=== PATIENT | female | born 1985 | race Caucasian/White ===

== ENCOUNTER 2022-11-12 14:28 | Emergency (ER) | payer OTHER, SELFPAY ==
[2022-11-12 14:38] VITALS: BP 141/80; PULSE 94; RESP 18; TEMP 36.8; O2SAT 100
--- NOTE | 2022-11-12 15:26 | ED.URI ---
HPI - URI/Sore Throat General Chief Complaint: Upper Respiratory Infection Stated Complaint: Sore throat Time Seen by Provider: 11/12/22 15:18 Source: patient Mode of arrival: ambulatory Limitations: no limitations History of Present Illness HPI Narrative: Patient presents today complaining 3 day history of sore throat, postnasal drip, and fatigue. Denies congestion or rhinorrhea. Denies fever. Patient believes her symptoms are due to seasonal allergies, but she did have a recent strep exposure and wanted to come in to be tested. She has been taking Xyzal and using Flonase with some relief and currently rates her pain 07/13. Related Data Home Medications Medication Instructions Recorded Confirmed etonogestrel 0.12 mg-ethinyl 1 vag ring vaginal ONCE 11/21/19 11/12/22 estradiol 0.015 mg/24 hr vaginal ring (NuvaRing) Allergies Allergy/AdvReac Type Severity Reaction Status Date / Time No Known Allergies Allergy Mild Verified 12/24/19 08:31 Review of Systems Review of Systems: CONSTITUTIONAL: Denies body aches, fever, chills, or sweats.+ fatigue EYES: Denies visual changes, redness, or discharge. ENT: Denies rhinorrhea, congestion, or otalgia.+ sore throat, postnasal drip CARDIOVASCULAR: Denies chest pain, palpitations, or edema. RESPIRATORY: Denies cough or dyspnea. GASTROINTESTINAL: Denies abdominal pain, nausea, vomiting, or diarrhea. GENITOURINARY: Denies dysuria or hematuria. SKIN: Denies rash, itching, or wounds. MUSCULOSKELETAL: Denies back pain, joint pain, or myalgia. NEUROLOGIC: Denies headache, numbness, tingling, or weakness. PSYCH: Denies depression or anxiety. [facility] Past Medical History Medical History Backache without radiation Dyslipidemia Environmental allergies History of depression Migraine Surgical History Surgical History No pertinent past surgical history Family History Family History Other Carcinoma of colon Colon cancer Family history of Alzheimer's disease Family history of coronary artery disease Social History Social History Smoking status: Former smoker Second hand tobacco smoke exposure: No Smoking end date: 07/04/16 Alcohol intake: current Alcohol use details: consumes 1 whiskey drink weekly Substance use: never Substance use type: does not use Gender identity (if verbalized by the patient): Female Comments At time of signature, I have reviewed and agree with nursing past medical, surgical, social and family history unless otherwise noted. Please see nursing chart for further information. There is no relevant family history pertinent to the presenting complaint Exam Narrative: GENERAL: Well-appearing, well-nourished, and in no acute distress. HEAD: Normocephalic, atraumatic. EYES: EOMI. No redness or drainage. Conjunctivae normal. ENT: Mucous membranes pink and moist. Nares clear. No rhinorrhea. TMs normal bilaterally. Throat normal with white postnasal drainage. Uvula midline. NECK: Normal AROM. Supple. No lymphadenopathy. CHEST: No respiratory distress. Clear to auscultation. HEART: Regular rate and rhythm. No murmur appreciated. Normal peripheral pulses. EXTREMITIES: Normal range of motion. No edema. SKIN: Warm, dry, no rash. Capillary refill normal. Normal skin turgor. NEURO: No focal deficits. Alert and oriented x3. Gait steady. PSYCH: Normal affect. No signs of depression or anxiety. Course Course Level of Care: Express Care Visit Vital Signs Vital signs: Vital Signs Temperature 98.2 F 11/12/22 14:38 Pulse Rate 94 11/12/22 14:38 Respiratory Rate 18 11/12/22 14:38 Blood Pressure 141/80 H 11/12/22 14:38 Pulse Oximetry 100 11/12/22 14:38 Oxygen Delivery
== END 2022-11-12 15:32 | disposition home or self-care (01) ==
PROVIDERS: Emergency Provider Nurse Practitioner
DX: J30.2 Other seasonal allergic rhinitis (principal); Z87.891 Personal history of nicotine dependence; E78.5 Hyperlipidemia, unspecified
CPT/HCPCS: 87081; 87880; 99213; G0463

== ENCOUNTER 2023-09-06 08:14 | Outpatient (CLI) | payer BC, SELFPAY ==
--- NOTE | ~2023-09-06 | MMUS_ITS ---
EXAMINATION: MM diagnostic chio BI w hi, US breast BI limited HISTORY: Right breast burning sensation approximately 4-6 months ago, feeling of odd sensation in rig ht breast, right breast pain today. TECHNIQUE: Full field and spot 3-D tomosynthesis images of both breasts were performed and synthetic 2-D images were generated. CAD analysis was submitted and interpreted. High resolution upper outer an d lower-outer quadrant bilateral breast ultrasound examination was performed. COMPARISON: None BREAST PARENCHYMAL COMPOSITION: There are scattered areas of fibroglandular density. FINDINGS: MAMMOGRAPHIC FINDINGS: There is mild fibroglandular asymmetry. No definite mass or architectural distortion, malignant calci fication, skin thickening or retraction of either breast is detected.. ULTRASOUND: No suspicious mass or shadowing, cyst or other significant sonographic abnormalities detected in the outer half of either breast. IMPRESSION: 1. No evidence of malignancy 2. Routine annual mammographic screening is recommended. BI-RADS Category 1: Negative Reviewed, dictated and finalized at location A. TH AND PHYSICAL EDUCATION TEACHER IMPRESSION: 1. No evidence of malignancy 2. Routine annual mammographic screening is recommended. BI-RADS Category 1: Negative
== END 2023-09-06 08:15 ==
LOC: MICIMG 08:16
PROVIDERS: PCP Obstetrics & Gynecology; Visit Provider Obstetrics & Gynecology
DX: N63.10 Unspecified lump in the right breast, unspecified quadrant (principal); N64.4 Mastodynia
CPT/HCPCS: 76642; 77062; 77066; G0279

== ENCOUNTER 2025-01-09 15:13 | Outpatient (CLI) | payer BC, SELFPAY ==
[2025-01-09] VITALS (7 sets, daily range): BP systolic 139–158; BP diastolic 73–85; PULSE 73–83; BMI 42.0
--- OUTSIDE RECORDS SUMMARY | 2025-01-09 15:22 | XMS_ITS | Continuity of Care Document ---
Author Organization [facility] Address [address] [facility] [place] [address] Phone Care Team Providers Care Client Service And Consulting Manager Name Role Phone Adilson Marrufo MD Unavailable Unavailable Allergies, Adverse Reactions, Alerts Substance Reaction Status Criticality poison cassandra extract Hives / Skin Rash(severe) Active No Information Procedures Procedure Date PREV VISIT, NEW, AGE 40-64 Advance Directives Directive Yes / No Effective Date File Name No Information Encounters Encounter Description Practice Location Reason(s) For Visit Diagnoses Date Provider Providers Copied on Encounter [facility], [address] [place], [place], [id number], tel:[phone] [facility] No Information Yaron De Anda. [address] [place], [id number], [place]. tel:[phone] PREV VISIT, NEW, AGE 40-64 [facility], [address] [place], [place], [id number], tel:[phone] [facility] physical (chief complaint) Encounter for general adult medical examination without abnormal findings Yaron De Anda. [address] [facility] [place], [address], [place]. tel:[phone] Family History Family Member Type Diagnosis Age At Onset Sister Problem breast CA 41 Father Problem Alive and well Mother Problem non hodgkin lymphoma remissi on Payers Payer name Insurance type Covered republican ID Authoriza tion(s) BCBS CI [id number] Social History Type Description Quantity Date Captured Comments Sex Female Smoking Status No Information Chief Complaint And Reason For Visit No Information Plan Of Treatment Date Type Action Status No Information History Of Present Illness Encounter Date Complaint History Of Prese nt Illness physical Pt needs annual physical Pt is 33 weeks .Pt had lab done for sem manager by cable wirer already Pt has not had any complication for her so far .Pt denies any active complaints Pt has sleep apnea but she has not been using cpap for long time. Pt denies any snoring Pt denies any excessive fatigue Pt denies any edema. Pt denies any abd pain Instructions Date Instruction Additional Infor mation No Information Assessments Type Assessment Date No Information
[2025-01-09 16:05] LABS: Alanine Aminotransferase 19 U/L (6-35); Albumin Level 3.0 g/dL (3.5-5.1); Alkaline Phosphatase 113 U/L (38-126); Anion Gap 5 mmol/L (4-12); Aspartate Amino Transferase 24 U/L (14-36); Bilirubin,Total 0.2 mg/dL (0.2-1.3); Blood Urea Nitrogen 10 mg/dL (7-17); Calcium 8.7 mg/dL (8.4-10.2); Carbon Dioxide 20 mmol/L (22-30); Chloride 108 mmol/L (98-107); Estimated Glomerular Filt Rate > 60; Glucose 76 mg/dL (65-110); Potassium 4.2 mmol/L (3.4-5.0); Sodium 133 mmol/L (137-145); Total Protein 6.4 g/dL (6.3-8.2); Uric Acid 4.4 mg/dL (2.5-7.5)
[2025-01-09 16:09] LABS: Hematocrit 34.2 % (37.0-47.0); Hemoglobin 10.4 g/dL (12.0-15.0); Immature Granulocyte Percent A 0.4 % (0-0.5); Lymphocytes Absolute Auto 2.55 K/mm3 (0.9-3.2); Mean Corpuscular HGB Conc 30.4 g/dl (32-36); Mean Corpuscular Hemoglobin 23.9 pg (26-34); Mean Corpuscular Volume 78.4 fl (80-100); Nucleated Red Blood Cells Absolute Auto 0.000 K/mm3 (0.0-0.012); Nucleated Red Blood Cells Perc 0.0 % (0.0-0.2); Platelet Count Result 257 k/mm3 (150-375); Red Blood Count 4.36 M/mm3 (4.2-5.4); White Blood Count 8.3 K/mm3 (4.5-10.0)
[2025-01-09 16:28] LABS: Total Protein Urine Random 197 mg/dL; Ur Ttl Prot Creatinine Ratio 1.04 mg/mg (0-0.20)
[2025-01-09 16:33] LABS: Add Urine Microscopic? YES; Appearance Urine Clear (Clear); Glucose Urine UA Negative (Negative); Leukocyte Esterase Ur 1+ LEU/UL (Negative); Nitrate Urine Negative (Negative); Non Pathogenic Casts 0-2; Specific Grav Ur 1.021 (1.001-1.035)
== END 2025-01-09 17:14 | disposition home or self-care (01) ==
LOC: ANHOBOP 15:20 → ANHOBPP 15:24
PROVIDERS: Visit Provider Obstetrics & Gynecology
DX: O13.9 Gestational [pregnancy-induced] hypertension without significant proteinuria, unspecified trimester (principal); Z3A.00 Weeks of gestation of pregnancy not specified
CPT/HCPCS: 36415; 59025; 80053; 81001; 82570; 84156; 84550; 85025

== ENCOUNTER 2025-01-10 17:23 | Outpatient (NON) | payer BC, SELFPAY ==
--- OUTSIDE RECORDS SUMMARY | 2025-01-10 17:32 | XMS_ITS | Continuity of Care Document ---
Author Organization [facility] Address [address] [facility] [place] [address] Phone Care Team Providers Care Processing Talc And Borate Supervisor Name Role Phone Adilson Marrufo MD Unavailable Unavailable Allergies, Adverse Reactions, Alerts Substance Reaction Status Criticality poison cassandra extract Hives / Skin Rash(severe) Active No Information Procedures Procedure Date PREV VISIT, NEW, AGE 40-64 Advance Directives Directive Yes / No Effective Date File Name No Information Encounters Encounter Description Practice Location Reason(s) For Visit Diagnoses Date Provider Providers Copied on Encounter [facility], [address] [place], [place], [id number], tel:[phone] [facility] No Information Yaron De Anda. [address] [place], [address], [place]. tel:[phone] PREV VISIT, NEW, AGE 40-64 [facility], [address] [place], [place], [address], tel:[phone] [facility] physical (chief complaint) Encounter for general adult medical examination without abnormal findings Yaron De Anda. [address] [facility] [place], [address], [place]. tel:[phone] Family History Family Member Type Diagnosis Age At Onset Sister Problem breast CA 41 Father Problem Alive and well Mother Problem non hodgkin lymphoma remissi on Payers Payer name Insurance type Covered constitution party ID Authoriza tion(s) BCBS CI [id number] Social History Type Description Quantity Date Captured Comments Sex Female Smoking Status No Information Chief Complaint And Reason For Visit No Information Plan Of Treatment Date Type Action Status No Information History Of Present Illness Encounter Date Complaint History Of Prese nt Illness physical Pt needs annual physical Pt is 33 weeks .Pt had lab done for adult high school instructor by tinning machine set up operator already Pt has not had any complication [...]
[2025-01-10 17:38] VITALS: BMI 42.0
[2025-01-10 18:05] LABS: Total Volume 24 Hour Urine 2000 ml
[2025-01-10 18:17] LABS: Total Protein Urine 24 Hr 1800 mg/24hr (28-141); Total Protein Urine Random 90 mg/dL
[2025-01-10 18:18] LABS: Creatinine 24 Hour Urine 1.2 gm/24 (0.8-1.8)
== END 2025-01-10 17:24 | disposition home or self-care (01) ==
LOC: ANHOBOP 17:30
PROVIDERS: Visit Provider Obstetrics & Gynecology
DX: O13.9 Gestational [pregnancy-induced] hypertension without significant proteinuria, unspecified trimester (principal); Z3A.00 Weeks of gestation of pregnancy not specified
CPT/HCPCS: 81050; 82570; 84156

== ENCOUNTER 2025-01-12 08:48 | Outpatient (CLI) | payer BC, SELFPAY ==
[2025-01-12] VITALS (11 sets, daily range): BP systolic 136–162; BP diastolic 71–92; PULSE 68–99; BMI 44.0
--- OUTSIDE RECORDS SUMMARY | 2025-01-12 08:55 | XMS_ITS | Continuity of Care Document ---
Author Organization [facility] Address [address] [facility] [place] [address] Phone Care Team Providers Care Lens Hardener Name Role Phone Adilson Marrufo MD Unavailable Unavailable Allergies, Adverse Reactions, Alerts Substance Reaction Status Criticality poison cassandra extract Hives / Skin Rash(severe) Active No Information Procedures Procedure Date PREV VISIT, NEW, AGE 40-64 Advance Directives Directive Yes / No Effective Date File Name No Information Encounters Encounter Description Practice Location Reason(s) For Visit Diagnoses Date Provider Providers Copied on Encounter [facility], [address] [place], [place], [id number], tel:[phone] [facility] No Information Yaron De Anda. [address], [address], [place]. tel:[phone] PREV VISIT, NEW, AGE 40-64 [facility], [address] [place], [place], [address], tel:[phone] [facility] physical (chief complaint) Encounter for general adult medical examination without abnormal findings Yaron De Anda. [address] [facility] [place], [address], [place]. tel:[phone] Family History Family Member Type Diagnosis Age At Onset Sister Problem breast CA 41 Father Problem Alive and well Mother Problem non hodgkin lymphoma remissi on Payers Payer name Insurance type Covered libertarian ID Authoriza tion(s) BCBS CI [id number] Social History Type Description Quantity Date Captured Comments Sex Female Smoking Status No Information Chief Complaint And Reason For Visit No Information Plan Of Treatment Date Type Action Status No Information History Of Present Illness Encounter Date Complaint History Of Prese nt Illness physical Pt needs annual physical Pt is 33 weeks .Pt had lab done for highballer by associate director regulatory affairs already Pt has not had any complication [...]
[2025-01-12 10:55] LABS: Hematocrit 34.1 % (37.0-47.0); Hemoglobin 10.4 g/dL (12.0-15.0); Immature Granulocyte Percent A 0.3 % (0-0.5); Lymphocytes Absolute Auto 2.28 K/mm3 (0.9-3.2); Mean Corpuscular HGB Conc 30.5 g/dl (32-36); Mean Corpuscular Hemoglobin 24.1 pg (26-34); Mean Corpuscular Volume 79.1 fl (80-100); Nucleated Red Blood Cells Absolute Auto 0.000 K/mm3 (0.0-0.012); Nucleated Red Blood Cells Perc 0.0 % (0.0-0.2); Platelet Count Result 225 k/mm3 (150-375); Red Blood Count 4.31 M/mm3 (4.2-5.4); White Blood Count 9.0 K/mm3 (4.5-10.0)
[2025-01-12] MEDS: ACETAMINOPHEN 500 MG TABLET 1000 MG PO (11:02)
[2025-01-12 11:07] LABS: Alanine Aminotransferase 20 U/L (6-35); Albumin Level 2.9 g/dL (3.5-5.1); Alkaline Phosphatase 127 U/L (38-126); Anion Gap 5 mmol/L (4-12); Aspartate Amino Transferase 25 U/L (14-36); Bilirubin,Total 0.2 mg/dL (0.2-1.3); Blood Urea Nitrogen 9 mg/dL (7-17); Calcium 8.2 mg/dL (8.4-10.2); Carbon Dioxide 21 mmol/L (22-30); Chloride 107 mmol/L (98-107); Estimated Glomerular Filt Rate > 60; Glucose 79 mg/dL (65-110); Potassium 4.8 mmol/L (3.4-5.0); Sodium 133 mmol/L (137-145); Total Protein 6.7 g/dL (6.3-8.2); Uric Acid 4.2 mg/dL (2.5-7.5)
--- NOTE | 2025-01-12 12:38 | P.PNOB_ITS ---
OB - Triage/Final Diagnosis Visit Information Comments/Additional reasons for admission: I have assessed the risk for this patient, Brooke Aguilar, and determined that she would benefit from observation care. Evaluation Laboratory results: Laboratory Tests 01/12/25 10:37 WBC 9.0 RBC 4.31 Hgb 10.4 L Hct 34.1 L MCV 79.1 L MCH 24.1 L MCHC 30.5 L RDW 15.2 H Plt Count 225 MPV 10.1 Immature Gran % (Auto) 0.3 Neut % (Auto) 65.2 Lymph % (Auto) 25.4 [place] % (Auto) 8.5 Eos % (Auto) 0.3 Baso % (Auto) 0.3 Lymph # (Auto) 2.28 [place] # (Auto) 0.8 H Eos # (Auto) 0.0 Baso # (Auto) 0.0 Abs Immat Gran (auto) 0.03 Absolute Neuts (auto) 5.8 Absolute Nucleated RBC 0.000 Nucleated RBC % 0.0 Sodium 133 L Potassium 4.8 Chloride 107 Carbon Dioxide 21 L Anion Gap 5 BUN 9 Creatinine 0.70 Estim Creat Clear Calc Not Reportable Estimated GFR > 60 Glucose 79 Uric Acid 4.2 Calcium 8.2 L Total Bilirubin 0.2 AST 25 ALT 20 Alkaline Phosphatase 127 H Total Protein 6.7 Albumin 2.9 L Vital signs: Vital Signs - 24 hr 01/12/25 09:16 01/12/25 09:31 01/12/25 09:46 Pulse Rate 76 71 68 Blood Pressure 156/88 H 155/82 H 149/89 H 01/12/25 10:01 01/12/25 10:16 01/12/25 10:31 Pulse Rate 74 73 69 Blood Pressure 162/77 H 140/77 141/76 H 01/12/25 10:46 01/12/25 11:01 01/12/25 11:16 Pulse Rate 74 74 69 Blood Pressure 136/71 145/82 H 147/76 H 01/12/25 11:31 Pulse Rate 81 Blood Pressure 142/92 H Final Diagnosis (1) Pre-eclampsia: Code(s): O14.90 - Unspecified pre-eclampsia, unspecified trimester Status: Acute Plan: - labs stable - bps in normal/mild range - set up for NST/BPP on 01/14/25; see's Dr. Queen on 01/16/25
== END 2025-01-12 11:50 | disposition home or self-care (01) ==
LOC: ANHOBOP 08:54 → ANHOBPP 08:56
PROVIDERS: Visit Provider Obstetrics & Gynecology
DX: O13.9 Gestational [pregnancy-induced] hypertension without significant proteinuria, unspecified trimester (principal); Z3A.00 Weeks of gestation of pregnancy not specified
CPT/HCPCS: 36415; 59025; 80053; 84550; 85025; 99199; A9270

== ENCOUNTER 2025-01-16 14:32 | Outpatient (RCR) | payer BC, SELFPAY ==
[2025-01-14 12:37] VITALS: BP 155/89; PULSE 94
[2025-01-14 12:46] VITALS: BP 145/86; PULSE 85
[2025-01-14 13:01] VITALS: BP 140/87; PULSE 81
[2025-01-14 13:16] VITALS: BP 145/89; PULSE 80
[2025-01-14 13:19] VITALS: BP 140/87; PULSE 95
--- NOTE | ~2025-01-16 | US_ITS ---
EXAMINATION: US OB BPP wo non-stress DATE: 01/14/2025 14:14 INDICATION: -induced hypertension during third trimester TECHNIQUE: Real-time pelvic ultrasound was performed. The interpreting radiologist was not present fo r the study. COMPARISON: None. FINDINGS: There is a single living fetus in vertex presentation. The placenta is posterior and not low-lying. heart rate is 137 beats per minute (bpm). Amniotic fluid volume is subjectively normal with nor mal deepest vertical pocket measurement of 4.2 cm. Biophysical profile performed by the technologist: breathing (30 sec sustained breathing in 30 minutes): 2 out of 2 movement (3 gross body movements in 30 minutes): 2 out of 2 tone (one episode of nisvczc-gvnrjyiec-oyvkayu limb movement): 2 out of 2 Amniotic fluid pocket (2 cm): 2 out of 2 Total score: 8 out of 8 IMPRESSION: 1. Single living fetus in vertex presentation with heart rate of 137 bpm. 2. Biophysical profile 8 out of 8. Reviewed, dictated and finalized at location A.
[2025-01-16 15:13] VITALS: BP 146/75; PULSE 95
== END 2025-02-09 10:55 | disposition home or self-care (01) ==
LOC: ANHOBOP 14:32
PROVIDERS: Visit Provider Obstetrics & Gynecology
DX: O13.9 Gestational [pregnancy-induced] hypertension without significant proteinuria, unspecified trimester (principal); Z3A.35 35 weeks gestation of pregnancy
CPT/HCPCS: 59025; 76819

== ENCOUNTER 2025-01-17 15:25 | Outpatient (RCR) | payer BC, SELFPAY ==
[2025-01-16] MEDS: BETAMETHASONE SOD PHOS/ACETATE 30 MG/5 ML VIAL 12 MG IM (15:38)
[2025-01-17] MEDS: BETAMETHASONE SOD PHOS/ACETATE 30 MG/5 ML VIAL 12 MG IM (15:34)
== END 2025-04-16 23:59 | disposition home or self-care (01) ==
LOC: ANHOBOP 15:25
PROVIDERS: Visit Provider Obstetrics & Gynecology
DX: O36.8990 Maternal care for other specified fetal problems, unspecified trimester, not applicable or unspecified (principal); O13.9 Gestational [pregnancy-induced] hypertension without significant proteinuria, unspecified trimester; Z3A.00 Weeks of gestation of pregnancy not specified
CPT/HCPCS: 59025; 96372; J0702

== ENCOUNTER 2025-01-24 05:06 | Inpatient (IN) | payer BC, SELFPAY ==
[2025-01-24] VITALS (224 sets, daily range): BP systolic 109–170; BP diastolic 63–97; PULSE 43–164; TEMP 36.3–36.6; O2SAT 83–100; BMI 44.2
--- OUTSIDE RECORDS SUMMARY | 2025-01-24 02:20 | XMS_ITS | Continuity of Care Document ---
Author Organization [facility] Address [address] [facility] [place] [address] Phone Care Team Providers Care Child Welfare Assistant Name Role Phone Adilson Marrufo MD Unavailable Unavailable Allergies, Adverse Reactions, Alerts Substance Reaction Status Criticality poison cassandra extract Hives / Skin Rash(severe) Active No Information Procedures Procedure Date PREV VISIT, NEW, AGE 40-64 Advance Directives Directive Yes / No Effective Date File Name No Information Encounters Encounter Description Practice Location Reason(s) For Visit Diagnoses Date Provider Providers Copied on Encounter [facility], [address] [place], [place], [address], tel:[phone] [facility] No Information Yaron De Anda. [address] [place], [place], [address], [place]. tel:[phone] PREV VISIT, NEW, AGE 40-64 [facility], [address] [place], [place], [address], tel:[phone] [facility] physical (chief complaint) Encounter for general adult medical examination without abnormal findings Yaron De Anda. [address] [facility] [place], [address], [place]. tel:[phone] Family History Family Member Type Diagnosis Age At Onset Sister Problem breast CA 41 Father Problem Alive and well Mother Problem non hodgkin lymphoma remissi on Payers Payer name Insurance type Covered green party ID Authoriza tion(s) BCBS CI [id number] Social History Type Description Quantity Date Captured Comments Sex Female Smoking Status No Information Chief Complaint And Reason For Visit No Information Plan Of Treatment Date Type Action Status No Information History Of Present Illness Encounter Date Complaint History Of Prese nt Illness physical Pt needs annual physical Pt is 33 weeks .Pt had lab done for high school foreign language teacher by english composition instructor already Pt has not had any complication [...]
[2025-01-24 03:07] LABS: Hematocrit 34.4 % (37.0-47.0); Hemoglobin 10.6 g/dL (12.0-15.0); Immature Granulocyte Percent A 0.3 % (0-0.5); Lymphocytes Absolute Auto 3.70 K/mm3 (0.9-3.2); Mean Corpuscular HGB Conc 30.8 g/dl (32-36); Mean Corpuscular Hemoglobin 24.0 pg (26-34); Mean Corpuscular Volume 77.8 fl (80-100); Nucleated Red Blood Cells Absolute Auto 0.000 K/mm3 (0.0-0.012); Nucleated Red Blood Cells Perc 0.0 % (0.0-0.2); Platelet Count Result 252 k/mm3 (150-375); Red Blood Count 4.42 M/mm3 (4.2-5.4); White Blood Count 10.2 K/mm3 (4.5-10.0)
[2025-01-24 03:26] LABS: Alanine Aminotransferase 25 U/L (6-35); Albumin Level 2.3 g/dL (3.5-5.1); Alkaline Phosphatase 147 U/L (38-126); Anion Gap 3 mmol/L (4-12); Aspartate Amino Transferase 32 U/L (14-36); Bilirubin,Total 0.1 mg/dL (0.2-1.3); Blood Urea Nitrogen 19 mg/dL (7-17); Calcium 7.8 mg/dL (8.4-10.2); Carbon Dioxide 20 mmol/L (22-30); Chloride 109 mmol/L (98-107); Estimated CRCL calculation 96 ml/min; Estimated Glomerular Filt Rate > 60; Glucose 87 mg/dL (65-110); Potassium 4.5 mmol/L (3.4-5.0); Sodium 132 mmol/L (137-145); Total Protein 5.5 g/dL (6.3-8.2); Uric Acid 6.1 mg/dL (2.5-7.5)
[2025-01-24 05:28] LABS: Add Urine Microscopic? YES; Appearance Urine Cloudy (Clear); Glucose Urine UA Negative (Negative); Leukocyte Esterase Ur Negative LEU/UL (Negative); Need Manual Microscopic Reviewed; Nitrate Urine Negative (Negative); Non Pathogenic Casts >20; Specific Grav Ur > 1.045 (1.001-1.035)
[2025-01-24 07:33] LABS: Total Protein Urine Random > 600 mg/dL
[2025-01-24 07:37] LABS: Ur Ttl Prot Creatinine Ratio > 2.08 mg/mg (0-0.20)
--- NOTE | 2025-01-24 07:39 | LDADM ---
This patient, Brooke Aguilar, was admitted to Labor/Delivery/Recovery 106 on 01/24/25 at 05:06. Plans for labor, pain management and were discussed with patient. Patient/family oriented to hospital policies and general routines including ID bracelet, bed and alarms, visiting hours, pain management, procedures, bathroom and other care routines, personal items, smoking policy, room service/diet and guest tray routines, security routines, and visiting hours. Patient/Family are encouraged to report perceived risks to care and to ask questions if they do not understand what they are told or what they should do. See [facility]BI[facility] for further documentation.
[2025-01-24] MEDS: LABETALOL HCL 100 MG TABLET 200 MG PO (08:35)
[2025-01-24 08:42] LABS: Syphilis IgG/IgM Antibody Non-Reactive (Nonreactive)
--- NOTE | 2025-01-24 09:30 | PM.IMHP ---
H&P: HPI History of Present Illness Date/Time: 01/24/25 09:30 Chief Complaint: Preeclampsia Narrative: patient is a 39-year at 37 weeks with an EDC of 02/14/2025. course significant for gestational hypertension she has been on Procardia. She had 24 hour urine proteinuria 1800 mg on 01/16. She presented to Labor and delivery with complaints of a headache. she had several blood pressures in severe range. She was started on labetolol. She had She has a history of headaches this headache felt different. Did not go away with Tylenol. PIH labs normal except increased p/c ratio. She was admitted for induction due to preeclampsia with severe features. She denies right upper quadrant pain scotomata. Review of Systems Review of Systems: All systems reviewed & are unremarkable except as noted in HPI and below Constitutional: Constitutional: Reports no additional constitutional complaints and Denies headache(s) Eyes: Eyes: Denies spots in vision ENT: Reports system reviewed and no additional complaints, except as documented and Denies headache(s) Cardiovascular: Cardiovascular: Denies chest pain and Denies dyspnea Respiratory: Respiratory: Denies dyspnea Gastrointestinal: Gastrointestinal: Reports no additional gastrointestinal complaints Genitourinary: Genitourinary: Reports amenorrhea Musculoskeletal: Musculoskeletal: Reports no additional musculoskeletal complaints Integumentary/Breasts: Skin/Breast: Denies breast mass and Denies rash Neurologic: Denies headache(s) Psychiatric: Psychiatric: Reports no additional psychiatric complaints [facility] Past Medical History Medical History Environmental allergies History of depression Dyslipidemia Migraine Backache without radiation Surgical History Surgical History No pertinent past surgical history Family History Family History (Updated 01/24/25 @ 07:56 by Liliana Toscano RN) Mother Non-Hodgkin lymphoma Sibling Breast cancer Other Carcinoma of colon Colon cancer Family history of Alzheimer's disease Family history of coronary artery disease Social History Social History Smoking status: Former smoker Tobacco type: cigarettes and e-cigarettes/vaping Second hand tobacco smoke exposure: No Smoking end date: 06/09/24 Alcohol intake: current Alcohol use details: consumes 1 whiskey drink weekly Substance use: never Substance use type: does not use Do You Feel Safe in your Home?: Yes Lack of Transportation: No Lack of Food: Never True Current Housing: I Have Housing Concerned About Future Housing: No Difficulty Paying Gas/Electric Bills: No Difficulty Paying for Meds: No Currently Unemployed: No Education: Trade/Vocational Certificate Difficulty w/ Childcare or Family Care: No Gender identity (if verbalized by the patient): Female Spiritual care concerns: No Meds Home Medications and Allergies Home Medications ?Medication ?Instructions ?Recorded ?Confirmed ?Type cetirizine 10 mg tablet (Zyrtec) 10 mg PO DAILY 01/03/25 01/24/25 History docosahexaenoic acid 200 mg 200 mg PO DAILY 01/03/25 01/24/25 History capsule ( DHA) docusate sodium 100 mg capsule 100 mg PO DAILY 01/03/25 01/24/25 History (Colace) nifedipine 30 mg tablet,extended 30 mg PO DAILY #10 tabs 01/09/25 01/24/25 Rx release 24 hr (Procardia XL) acetaminophen 500 mg tablet 1,000 mg PO Q4-6H PRN headache 01/24/25 01/24/25 History (Tylenol Extra Strength) Allergies Allergy/AdvReac Type Severity Reaction Status Date / Time No Known Allergies Allergy Mild Verified 01/16/25 13:41 Vital Signs Vital Signs - 24 hr 01/24/25 02:41 01/24/25 02:45 01/24/25 02:47 Temperature Pulse Rate 79 74 72 Blood Pressure 162/91 H Blood Pressure [Left Arm] 162/91 H Pulse Oximetry Oxygen Delivery 01/24/25 02:48 01/24/25 02:53 01/24/25 02:58 Temperature Pulse Rate Blood Pressure Blood Pressure [Left Arm] Pulse Oximetry 100 100 99 Oxygen Delivery 01/24/25 03:00 01/24/25 03:05 01/24/25 03:10 Temperature Pulse Rate 74 Blood Pressure 147/80 H Blood Pressure [Left Arm] Pulse Oximetry 99 99 99 Oxygen Delivery 01/24/25 03:15 01/24/25 03:20 01/24/25 03:25 Temperature Pulse Rate 67 Blood Pressure 151/86 H Blood Pressure [Left Arm] Pulse Oximetry 96 98 99 Oxygen Delivery 01/24/25 03:30 01/24/25 03:35 01/24/25 03:40 Temperature Pulse Rate 67 Blood Pressure 159/86 H Blood Pressure [Left Arm] Pulse Oximetry 96 99 99 Oxygen Delivery 01/24/25 03:45 01/24/25 03:50 01/24/25 03:55 Temperature Pulse Rate 65 Blood Pressure 164/96 H Blood Pressure [Left Arm] Pulse Oximetry 97 99 100 Oxygen Delivery 01/24/25 04:00 01/24/25 04:05 01/24/25 04:09 Temperature Pulse Rate 67 Blood Pressure 164/91 H Blood Pressure [Left Arm] Pulse Oximetry 97 100 100 Oxygen Delivery 01/24/25 04:14 01/24/25 04:15 01/24/25 04:19 Temperature Pulse Rate 72 Blood Pressure 159/86 H Blood Pressure [Left Arm] Pulse Oximetry 100 99 Oxygen Delivery 01/24/25 04:24 01/24/25 04:29 01/24/25 04:31 Temperature Pulse Rate 65 Blood Pressure 160/86 H Blood Pressure [Left Arm] Pulse Oximetry 99 99 Oxygen Delivery 01/24/25 04:34 01/24/25 04:39 01/24/25 04:44 Temperature Pulse Rate Blood Pressure Blood Pressure [Left Arm] Pulse Oximetry 99 98 98 Oxygen Delivery 01/24/25 04:46 01/24/25 04:47 01/24/25 04:52 Temperature Pulse Rate 61 Blood Pressure 162/90 H Blood Pressure [Left Arm] Pulse Oximetry 99 99 Oxygen Delivery 01/24/25 04:57 01/24/25 05:00 01/24/25 05:02 Temperature Pulse Rate 67 Blood Pressure 168/83 H Blood Pressure [Left Arm] Pulse Oximetry 99 100 Oxygen Delivery 01/24/25 05:07 01/24/25 05:12 01/24/25 05:16 Temperature Pulse Rate 69 Blood Pressure 157/84 H Blood Pressure [Left Arm] Pulse Oximetry 99 99 Oxygen Delivery 01/24/25 05:17 01/24/25 05:30 01/24/25 05:42 Temperature Pulse Rate 75 75 Blood Pressure 161/80 H Blood Pressure [Left Arm] Pulse Oximetry 99 Oxygen Delivery 01/24/25 05:53 01/24/25 06:04 01/24/25 06:15 Temperature Pulse Rate 71 71 67 Blood Pressure 150/82 H 153/80 H 140/81 Blood Pressure [Left Arm] Pulse Oximetry Oxygen Delivery 01/24/25 07:32 01/24/25 07:32 01/24/25 07:36 Temperature Pulse Rate 69 69 Blood Pressure 158/94 H 158/94 H Blood Pressure [Left Arm] Pulse Oximetry Oxygen Delivery Room Air 01/24/25 08:00 01/24/25 08:30 01/24/25 08:35 Temperature 97.4 F L Pulse Rate 65 69 69 Blood Pressure 154/94 H 144/75 H Blood Pressure [Left Arm] Pulse Oximetry Oxygen Delivery 01/24/25 09:00 Temperature Pulse Rate 74 Blood Pressure 135/81 Blood Pressure [Left Arm] Pulse Oximetry Oxygen Delivery Exam Const: General: no acute distress Eyes: General: appearance normal, both eyes and all related structures Resp: Effort & Inspection: normal respiratory effort Cardio: Rate: regular rate GI: Other: Gravid no fundal tenderness no right upper quadrant pain Skin: General skin exam: no rashes or lesions noted Neuro: Cognition (Neuro): normal cognition Extrem: General: normal to inspection Psych: Mental Status: mental status grossly normal H&P: Results Labs Labs: Short CBC 01/24/25 Range/Units 02:29 WBC 10.2 H (4.5-10.0) K/mm3 Hgb 10.6 L (12.0-15.0) g/dL Hct 34.4 L (37.0-47.0) % Plt Count 252 (150-375) k/mm3 BMP 01/24/25 02:29 Sodium 132 L Potassium 4.5 Chloride 109 H Carbon Dioxide 20 L BUN 19 H D Creatinine 0.89 Glucose 87 Calcium 7.8 L Liver Function 01/24/25 Range/Units 02:29 Total Bilirubin 0.1 L (0.2-1.3) mg/dL AST 32 (14-36) U/L ALT 25 (6-35) U/L Alkaline Phosphatase 147 H (38-126) U/L Albumin 2.3 L (3.5-5.1) g/dL Urine 01/24/25 Range/Units 02:29 Urine Color Dark yellow (Yellow) Urine Appearance Cloudy H (Clear) Urine pH 5.5 (5.0-9.0) Ur Specific [place] > 1.045 H (1.001-1.035) Urine Protein 4+ H (Negative) mg/dL Urine Glucose (UA) Negative (Negative) mg/dL Assessment and Plan Assessment and plan (1) Pre-eclampsia: Code(s): O14.90 - Unspecified pre-eclampsia, unspecified trimester Status: Acute Assessment and Plan: Severe range blood pressures responded to labetalol. Induction with Cytotec then Pitocin. Informed of risks benefits of induction of labor. Risk of continuing . She agrees with induction of labor.
--- NOTE | 2025-01-24 17:44 | WPDANESEPPF ---
Anes - Initial Pre Proc Eval Procedure: labor epidural Date/Time: 01/24/25 17:44 Surgeon: Jamie Queen MD Pre Op Diagnosis: Headache Patient Data Age: 39 Gender: F Height: 1.65 m Weight: 120.656 kg Last Vital Signs Temp 36.4 C 01/24/25 16:00 Pulse 69 01/24/25 17:30 BP 144/80 H 01/24/25 17:30 Pulse Ox 99 01/24/25 17:39 O2 Del Method Room Air 01/24/25 07:36 Allergies Allergy/AdvReac Type Severity Reaction Status Date / Time No Known Allergies Allergy Mild Verified 01/16/25 13:41 Home Medications ?Medication ?Instructions ?Recorded ?Confirmed ?Type cetirizine 10 mg tablet (Zyrtec) 10 mg PO DAILY 01/03/25 01/24/25 History docosahexaenoic acid 200 mg 200 mg PO DAILY 01/03/25 01/24/25 History capsule ( DHA) docusate sodium 100 mg capsule 100 mg PO DAILY 01/03/25 01/24/25 History (Colace) nifedipine 30 mg tablet,extended 30 mg PO DAILY #10 tabs 01/09/25 01/24/25 Rx release 24 hr (Procardia XL) acetaminophen 500 mg tablet 1,000 mg PO Q4-6H PRN headache 01/24/25 01/24/25 History (Tylenol Extra Strength) Laboratory Tests 01/24/25 01/24/25 01/24/25 02:29 05:20 Unknown WBC 10.2 H K/mm3 (4.5-10.0) RBC 4.42 M/mm3 (4.2-5.4) Hgb 10.6 L g/dL (12.0-15.0) Hct 34.4 L % (37.0-47.0) MCV 77.8 L fl (80-100) MCH 24.0 L pg (26-34) MCHC 30.8 L g/dl (32-36) RDW 16.2 H % (11.5-14.5) Plt Count 252 k/mm3 (150-375) MPV 10.2 fl (7.4-10.4) Immature Gran % (Auto) 0.3 % (0-0.5) Neut % (Auto) 55.7 % (45.5-73.1) Lymph % (Auto) 36.4 % (18.3-44.2) [place] % (Auto) 6.5 % (2.6-8.5) Eos % (Auto) 0.7 % (0-4.4) Baso % (Auto) 0.4 % (0.2-1.2) Lymph # (Auto) 3.70 H K/mm3 (0.9-3.2) [place] # (Auto) 0.7 H K/mm3 (0.1-0.6) Eos # (Auto) 0.1 K/mm3 (0-0.3) Baso # (Auto) 0.0 K/mm3 (0.0-0.1) Abs Immat Gran (auto) 0.03 K/mm3 (0.00-0.031) Absolute Neuts (auto) 5.7 K/mm3 (1.3-6.7) Absolute Nucleated RBC 0.000 K/mm3 (0.0-0.012) Nucleated RBC % 0.0 % (0.0-0.2) Sodium 132 L mmol/L (137-145) Potassium 4.5 mmol/L (3.4-5.0) Chloride 109 H mmol/L (98-107) Carbon Dioxide 20 L mmol/L (22-30) Anion Gap 3 L mmol/L (4-12) BUN 19 H D mg/dL (7-17) Creatinine 0.89 mg/dL (0.7-1.0) Estim Creat Clear Calc 96 ml/min Estimated GFR > 60 (59 - ) Glucose 87 mg/dL (65-110) Uric Acid 6.1 mg/dL (2.5-7.5) Calcium 7.8 L mg/dL (8.4-10.2) Total Bilirubin 0.1 L mg/dL (0.2-1.3) AST 32 U/L (14-36) ALT 25 U/L (6-35) Alkaline Phosphatase 147 H U/L (38-126) Total Protein 5.5 L g/dL (6.3-8.2) Albumin 2.3 L g/dL (3.5-5.1) Urine Color Dark yellow (Yellow) Urine Appearance Cloudy H (Clear) Urine pH 5.5 (5.0-9.0) Ur Specific [place] > 1.045 H (1.001-1.035) Urine Protein 4+ H mg/dL (Negative) Urine Glucose (UA) Negative mg/dL (Negative) Urine Ketones Trace H mg/dL (Negative) Ur Blood (Man) Trace (Negative) Urine Nitrate Negative (Negative) Urine Bilirubin Negative (Negative) Urine Urobilinogen 0.2 mg/dL (<2.0) Add Ur Microanalysis Reviewed Leukocyte Esterase Rfl Negative SEGUNDO/UL (Negative) Urine RBC 3-5 H /hpf (0-2) Urine WBC 11-20 H /hpf (0-3) Ur Squamous Epith Cells Many H /hpf (Few) Amorphous Sediment Moderate H (None) Urine Bacteria 4+ H /hpf Urine Casts >20 Hyaline Casts Present /lpf (None) U Random Total Protein > 600 mg/dL Urine Creatinine 288.1 mg/dL Protein/Creat Ratio 2 > 2.08 H mg/mg (0-0.20) Syphilis IgG/IgM Ab Non-reactive (Nonreactive) Blood Type A Positive Antibody Screen Negative Patient hx anesthesia problems: none Family hx anesthesia problems: none Results Review: All pre-operative results and documents have been reviewed as part of the pre-operative evaluation. [facility] Past Medical History Medical History Environmental allergies History of depression Dyslipidemia Migraine Backache without radiation Surgical History Surgical History No pertinent past surgical history Family History Family History (Updated 01/24/25 @ 07:56 by Liliana Toscano RN) Mother Non-Hodgkin lymphoma Sibling Breast cancer Other Carcinoma of colon Colon cancer Family history of Alzheimer's disease Family history of coronary artery disease Social History Social History Smoking status: Former smoker Tobacco type: cigarettes and e-cigarettes/vaping Second hand tobacco smoke exposure: No Smoking end date: 06/09/24 Alcohol intake: current Alcohol use details: consumes 1 whiskey drink weekly Substance use: never Substance use type: does not use Do You Feel Safe in your Home?: Yes Lack of Transportation: No Lack of Food: Never True Current Housing: I Have Housing Concerned About Future Housing: No Difficulty Paying Gas/Electric Bills: No Difficulty Paying for Meds: No Currently Unemployed: No Education: Trade/Vocational Certificate Difficulty w/ Childcare or Family Care: No Gender identity (if verbalized by the patient): Female Spiritual care concerns: No Anes - Eval Final PreProcedure Day of Procedure 01/24/25 17:44 Heart: regular rate and rhythm Lungs: clear to auscultation and normal air movement Airway: Mallampati scale class II Neurological: alert and oriented ASA classification: III Anesthesia type and monitoring: regional epidural Results Review: All pre-operative results and documents have been reviewed as part of the pre-operative evaluation. Informed Consent: The patient's anesthetic plan and its attendant risks and benefits were discussed with the patient/family/POA. Questions were solicited and answers provided to the satisfaction of the patient/family/POA.
[2025-01-25] VITALS (255 sets, daily range): BP systolic 96–170; BP diastolic 48–97; PULSE 54–90; TEMP 36.2–36.9; O2SAT 86–100
[2025-01-25] MEDS: LABETALOL HCL 100 MG TABLET 200 MG PO ×2 (01:19→21:34)
--- NOTE | 2025-01-25 07:45 | PM.OBPNLAB ---
Pain Control Date/time seen: 01/25/25 07:45 Comments: cat 1, cervix /-3, cook cath inserted in cervix, will start low dose pitocin, bp stable.
[2025-01-25] MEDS: OXYTOCIN 30 UNITS/NS 500 ML 30 UNITS/500 ML BAG IV CONT (08:00)
[2025-01-25] MEDS: LACTATED RINGERS 1,000 ML 125 ML IV CONT ×3 (08:00→17:40)
--- NOTE | 2025-01-25 13:06 | PM.OBPNLAB ---
Pain Control Date/time seen: 01/25/25 13:06 Comments: fht 135, cat 1, AROM 2/60-70/-2. IUPC placed for improved assessment of contractions. Continue Pitocin. Blood pressures normal.
[2025-01-26] VITALS (167 sets, daily range): BP systolic 83–169; BP diastolic 51–133; PULSE 62–148; RESP 13–18; TEMP 36.2–36.8; O2SAT 94–100
[2025-01-26] MEDS: LACTATED RINGERS 1,000 ML 125 ML IV CONT (02:16)
--- NOTE | 2025-01-26 06:12 | WPDANESEPPF ---
Anes - Initial Pre Proc Eval Procedure: C/S Date/Time: 01/26/25 06:12 Surgeon: Garth Pre Op Diagnosis: Arrest of dilation Pre Op Diagnosis: Headache Patient Data Age: 39 Gender: F Height: 1.65 m Weight: 120.656 kg Last Vital Signs Temp 36.6 C 01/26/25 02:00 Pulse 76 01/26/25 06:00 BP 141/91 H 01/26/25 06:00 Pulse Ox 99 01/26/25 06:09 O2 Del Method Room Air 01/24/25 07:36 Allergies Allergy/AdvReac Type Severity Reaction Status Date / Time No Known Allergies Allergy Mild Verified 01/16/25 13:41 Home Medications ?Medication ?Instructions ?Recorded ?Confirmed ?Type cetirizine 10 mg tablet (Zyrtec) 10 mg PO DAILY 01/03/25 01/24/25 History docosahexaenoic acid 200 mg 200 mg PO DAILY 01/03/25 01/24/25 History capsule ( DHA) docusate sodium 100 mg capsule 100 mg PO DAILY 01/03/25 01/24/25 History (Colace) nifedipine 30 mg tablet,extended 30 mg PO DAILY #10 tabs 01/09/25 01/24/25 Rx release 24 hr (Procardia XL) acetaminophen 500 mg tablet 1,000 mg PO Q4-6H PRN headache 01/24/25 01/24/25 History (Tylenol Extra Strength) Patient hx anesthesia problems: none Family hx anesthesia problems: none Results Review: All pre-operative results and documents have been reviewed as part of the pre-operative evaluation. [facility] Past Medical History Medical History (Updated 01/26/25 @ 06:13 by Andrew Macario DO) Pre-eclampsia Environmental allergies History of depression Dyslipidemia Migraine Backache without radiation Surgical History Surgical History No pertinent past surgical history Family History Family History (Updated 01/24/25 @ 07:56 by Liliana Toscano RN) Mother Non-Hodgkin lymphoma Sibling Breast cancer Other Carcinoma of colon Colon cancer Family history of Alzheimer's disease Family history of coronary artery disease Social History Social History Smoking status: Former smoker Tobacco type: cigarettes and e-cigarettes/vaping Second hand tobacco smoke exposure: No Smoking end date: 06/09/24 Alcohol intake: current Alcohol use details: consumes 1 whiskey drink weekly Substance use: never Substance use type: does not use Do You Feel Safe in your Home?: Yes Lack of Transportation: No Lack of Food: Never True Current Housing: I Have Housing Concerned About Future Housing: No Difficulty Paying Gas/Electric Bills: No Difficulty Paying for Meds: No Currently Unemployed: No Education: Trade/Vocational Certificate Difficulty w/ Childcare or Family Care: No Gender identity (if verbalized by the patient): Female Spiritual care concerns: No Anes - Eval Final PreProcedure Day of Procedure 01/26/25 06:12 Patient weight: morbidly obese Heart: regular rate and rhythm Lungs: clear to auscultation and normal air movement Airway: Mallampati scale class II Neurological: alert and oriented Last oral intake: >/= 8 hours ASA classification: III Emergent: no Anesthetic plan: proceed Anesthesia type and monitoring: regional epidural and standard monitoring Results Review: All pre-operative results and documents have been reviewed as part of the pre-operative evaluation. Informed Consent: The patient's anesthetic plan and its attendant risks and benefits were discussed with the patient/family/POA. Questions were solicited and answers provided to the satisfaction of the patient/family/POA.
--- NOTE | 2025-01-26 06:25 | P.HPUP_ITS ---
History and Physical Update Update Date/Time: 01/26/25 06:25 39-year-old primigravid patient has been induced/in labor due to preeclampsia and has made no significant cervical spinning frame changer last 12hours and the point her contractions were consistent and adequate decelerations occurred and Pitocin needed to be stopped. Baby has recovered with category 1 tracing. Patient opts for primary delivery due to arrest of dilation and prolonged labor. Option of continuing was discussed and she declines. Ris ks/benefits of procedure were discussed, I agree with her decision to proceed. History and Physical has been reviewed, including an updated exam of the patient. There are NO changes in the patient's condition. Risks, benefits, and alternatives have been discussed and questions answered. Patient agrees to proceed with procedure.
[2025-01-26] MEDS: FAMOTIDINE 20 MG/2 ML VIAL IV PUSH (06:34)
[2025-01-26] MEDS: ONDANSETRON INJ 4 MG/2 ML VIAL IV PUSH (06:34)
[2025-01-26] MEDS: ACETAMINOPHEN 500 MG TABLET 1000 MG PO ×3 (06:35→20:43)
[2025-01-26] MEDS: AZITHROMYCIN IV 500 MG in SODIUM CHLORIDE 0.9% IV 250 ML IVPB (06:42)
--- NOTE | 2025-01-26 07:31 | W.PM.OBCSD ---
OB - Delivery Note Procedure Delivery date: 01/26/25 Pre-op diagnosis: Arrest of Dilation and Preeclampsia w/o severe features Post-op Diagnosis: Same Procedure Performed: Primary Primary branch: low cervical, transverse Surgeon: Jarvis Liang MD Anesthesia type: Epidural Description of Procedure/Findings: Patient prepped and draped in usual manner for this procedure. Pfannenstiel incision was made and carried down to the fascia which was extended the length of the skin incision. Superiorly and inferiorly dissected away from the rectus muscles the peritoneum was readily entered. Bladder flap developed without difficulty. Uterus scored with clear fluid noted. Low transverse incision was made had vertex was delivered without difficulty. Rest of baby was delivered cord clamped cut and placenta was removed manually. Uterus was exteriorized cleared of membranes and clots and approximated using 0 Monocryl in running interlocking manner with good approximation hemostasis noted. Uterus was slightly boggy Cytotec will be given. Uterus turned the abdomen gutters were clear suture sites with clots and the fascia was approximated 0 Vicryl from left angle midline right angle midline with good approximation hemostasis noted. Subcutaneous tissue approximated using 0 plain suture and thu were then used to approximate skin edges. Patient was sent to recovery room in stable condition. Specimen: Yes Estimated Blood Loss: 535 Urine Output: 600 Drains: No Packing: No Pathology: Yes Complications: No immediate complications Condition: Stable Disposition: PACU [place] Baby Gestational Age by Date: 37 Infant gender: Female presentation: vertex Placenta delivery description: Manual Removal Cord Vessel Description: 3 Vessels
[2025-01-26] MEDS: MORPHINE SULFATE INJ (*CRX) 10 MG/ML AMP 2.5 MG IV PUSH (09:02)
--- NOTE | 2025-01-26 09:55 | S_PTH ---
PATIENT: Brooke Aguilar LOC: [facility]2 U#:[id number] AGE/SX: 39/F ROOM: 290 RE01/24/[address]: Jamie Queen MD : [id number] BED: 00 DIS: 01/28/2025 SPEC #: [id number] RECD: 01/28/25 08:02 STATUS: SUKH REQ #: [id number] ZAHRAA: 01/26/25 09:[address]: Jarvis Liang DEPT: [facility] Surgical RECD BY: Myranda Adams ENTERED: 01/28/25 08:02 SP TYPE: Surgical OTHR DR: Jamie Queen MD [employer] PH[employer]ICIAN Hubert Ospina MD Tissues: A - Placenta Procedures: Hematoxylin and Eosin Stain Gross and Microscopic Level 5
--- NOTE | 2025-01-26 11:36 | PC.NURSE ---
Patient transferred to post room #290 via stretcher. Support person present. Oriented to unit, room, information board, rooming in, admission packet and security measures. Patient verbalizes understanding.
[2025-01-26] MEDS: SIMETHICONE 80 MG TAB.CHEW PO ×2 (13:23→16:06)
[2025-01-26] MEDS: KETOROLAC 15 MG/ML VIAL (*BKC) IV PUSH ×2 (13:24→20:42)
--- NOTE | 2025-01-26 13:30 | PC.NURSE ---
Infant has a low blood glucose and needs to feed so we placed baby in football hold. Mom had a this morning and is unable to sit up straight. We discussed that normally we would unwrap baby and get her close to mom, but baby was a little cold and needs to remain swaddled at this time. Educated patient on what to expect immediately after delivery with a sleepy baby. This baby is 37 weeks gestation so we discussed that this may also affect her feeding ability. Mom seems eager to breastfeed but understands that baby needs to be supplemented and receive gel due to her low glucose. Mom is encouraged to call out for any feedings that she needs help with or if she has any questions or concerns. Primary RN updated that baby did not breastfeed.
[2025-01-26] MEDS: LABETALOL HCL 100 MG TABLET 200 MG PO (13:36)
[2025-01-26] MEDS: DEXTROSE 5%/0.45% SOD CHL 1,000 ML 125 ML IV CONT (16:05)
[2025-01-26] MEDS: MULTIVIT/MIN/PREN/FOL AC/IRON TABLET 1 TAB PO (16:07)
--- NOTE | 2025-01-26 17:00 | PC.NURSE ---
Blood sugar obtained prior to feeding and is WNL at 51. Baby is placed at the right breast in football hold. She is agitated and mom works well to try to calm her. Baby is unable to settle so mom is holding her skin to skin until she calms down. Will try again in 10 minutes. Patient has a visitor that is a nursery nurse and she assisted patient to attempt in multiple feeding positions but they were unable to get baby to wake and feed. No latch was achieved. Mom is agreeable to supplementing at this time so that she may rest. We discussed need for pumping if mom desires to feed breast milk and she is planning to have her sister bring in her pump from home. She knows that we can provide a hospital pump for her if desired. Visitor tried to feed the bottle and was able to get baby to take 2ml. LC worked with baby with maximum chin and cheek support and she took another 10ml in about 30 minutes. Reported to primary RN.
[2025-01-26] MEDS: LIDOCAINE 5% PATCH 1 PATCH TRANSDERM (20:49)
[2025-01-26] MEDS: KCL 20 MEQ/D5/0.45% SOD CHL 1,000 ML 125 ML IV CONT (23:45)
[2025-01-27] VITALS (8 sets, daily range): BP systolic 125–146; BP diastolic 69–85; PULSE 70–82; RESP 16–18; TEMP 36.1–36.3; O2SAT 72–100
[2025-01-27] MEDS: LABETALOL HCL 100 MG TABLET 200 MG PO ×2 (01:36→13:42)
[2025-01-27] MEDS: KETOROLAC 15 MG/ML VIAL (*BKC) IV PUSH (02:59)
[2025-01-27] MEDS: ACETAMINOPHEN 500 MG TABLET 1000 MG PO ×4 (02:59→22:34)
[2025-01-27 05:26] LABS: Hematocrit 28.1 % (37.0-47.0); Hemoglobin 8.8 g/dL (12.0-15.0); Immature Granulocyte Percent A 0.7 % (0-0.5); Lymphocytes Absolute Auto 2.70 K/mm3 (0.9-3.2); Mean Corpuscular HGB Conc 31.3 g/dl (32-36); Mean Corpuscular Hemoglobin 24.6 pg (26-34); Mean Corpuscular Volume 78.7 fl (80-100); Nucleated Red Blood Cells Absolute Auto 0.000 K/mm3 (0.0-0.012); Nucleated Red Blood Cells Perc 0.0 % (0.0-0.2); Platelet Count Result 180 k/mm3 (150-375); Red Blood Count 3.57 M/mm3 (4.2-5.4); White Blood Count 19.0 K/mm3 (4.5-10.0)
--- NOTE | 2025-01-27 08:21 | PM.OBPNVD ---
OB - PN: Subj Subjective Date/time seen: 01/27/25 08:21 Diet/ambulation tolerated. Pain well controlled. VSS one mild elevation earlier abd pos BS, ed tender bandage in place labs noted routine pp/postop [facility] tuesday[facility]tuesday OB - PN: Obj Data Labs 01/27/25 05:16 01/24/25 02:29 Labs: Laboratory Results - last 24 hr 01/27/25 05:16 WBC 19.0 H RBC 3.57 L Hgb 8.8 L Hct 28.1 L MCV 78.7 L MCH 24.6 L MCHC 31.3 L RDW 16.8 H Plt Count 180 MPV 10.3 Immature Gran % (Auto) 0.7 H Neut % (Auto) 80.8 H Lymph % (Auto) 14.2 L [place] % (Auto) 4.0 Eos % (Auto) 0.2 Baso % (Auto) 0.1 L Lymph # (Auto) 2.70 [place] # (Auto) 0.8 H Eos # (Auto) 0.0 Baso # (Auto) 0.0 Abs Immat Gran (auto) 0.13 H Absolute Neuts (auto) 15.4 H Absolute Nucleated RBC 0.000 Nucleated RBC % 0.0 OB - PN A/P Time Spent With Patient Time: Total time spent is greater than 50% in coordination of care (as documented) at patient's floor/unit and/or counseling patient:
[2025-01-27] MEDS: DOCUSATE SODIUM 100 MG CAPSULE PO ×2 (08:24→16:16)
[2025-01-27] MEDS: MULTIVIT/MIN/PREN/FOL AC/IRON TABLET 1 TAB PO (08:25)
[2025-01-27] MEDS: SIMETHICONE 80 MG TAB.CHEW PO ×3 (08:25→16:16)
[2025-01-27] MEDS: IBUPROFEN 600 MG TABLET PO ×3 (10:01→22:34)
--- NOTE | 2025-01-27 16:28 | WPDANLDPN2 ---
Anes-Prog Note L&D Date/Time: 01/27/25 16:28 Comfortable throughout: delivery and section Neuraxial method: epidural Epidural/Spinal procedure site: clean & non-tender Neuro status: Neuro function grossly intact. Cardiovascular status: normal Respiratory status: normal Airway patency: baseline Mental status: baseline Post-Op hydration status: normal Vital Signs: Last Vital Signs Temp 36.3 C L 01/27/25 08:15 Pulse 74 01/27/25 13:42 Resp 16 01/27/25 12:00 BP 143/81 H 01/27/25 12:00 Pulse Ox 100 01/27/25 12:00 O2 Del Method Room Air 01/26/25 09:40 Pain score (VAS): 2 I/O: Intake & Output 01/27/25 01/27/25 01/27/25 07:59 15:59 23:59 Intake Total 1000 480 Output Total 2491 9502 Balance -4216 -483 Post-procedural complaints: none Patient feedback: Patient satisfied with anesthetic care.
--- NOTE | 2025-01-27 16:28 | WPDANLDNPN2 ---
Anes-Prog Note L&D-Neuraxial Date/Time: 01/27/25 16:28 Neuraxial medications: epidural PF morphine Opiod-related complaints: none Patient feedback: Patient satisfied with post-operative pain management.
--- NOTE | 2025-01-27 16:50 | PC.NURSE ---
Introductions were made, then consulted with patient to assess needs related to . Discussed with mother her?plans to feed?her and the?experience so far. Per mother with her last feeding her baby only breastfed for minutes and she was now feeding a formula bottle. She talked about her plans when she goes home and if baby will nurse at the breast or if she needs to pump and bottle feed, she was ok with whichever the baby wants to do. Encouraged mother to call out for assistance with feedings and if baby does not effectively feed at the breast or if she only takes a bottle then she should start using her breast pump. If it is not brought to her from home then she will lt her nurse know and she can get set up with a hospital breast pump. Resources provided for inpatient and outpatient services with the feeding sheet, mom/baby guide and name written on the communication board. Mother voiced understanding of information and will call if there is a request for assistance. Reported to the Primary RN.
[2025-01-27] MEDS: LIDOCAINE 5% PATCH 1 PATCH TRANSDERM (22:22)
[2025-01-28 00:45] VITALS: BP 148/81; PULSE 74; RESP 16; TEMP 36.4; O2SAT 100
[2025-01-28 01:17] VITALS: PULSE 74
[2025-01-28] MEDS: LABETALOL HCL 100 MG TABLET 200 MG PO (01:17)
[2025-01-28] MEDS: ACETAMINOPHEN 500 MG TABLET 1000 MG PO ×2 (04:40→10:46)
[2025-01-28] MEDS: IBUPROFEN 600 MG TABLET PO ×2 (04:40→10:46)
[2025-01-28 04:55] VITALS: BP 135/75; PULSE 71; RESP 16; TEMP 36.3; O2SAT 97
[2025-01-28 07:50] VITALS: BP 159/76; PULSE 90; RESP 18; TEMP 36.9; O2SAT 99
--- NOTE | 2025-01-28 08:51 | P.PNOB_ITS ---
OB - PN: Subj Subjective Date/time seen: 01/28/25 08:51 Narrative: Pain OK. Tolerating diet. Would like to go home. OB - PN: Obj Data Labs 01/27/25 05:16 01/24/25 02:29 OB - PN A/P Assessment and Plan (1) delivery delivered: Code(s): O82 - Encounter for delivery without indication Status: Acute (2) Pre-eclampsia: Qualifiers: Trimester: third trimester Qualified Code(s): O14.93 - Unspecified pre- eclampsia, third trimester Code(s): O14.90 - Unspecified pre-eclampsia, unspecified trimester Status: Acute Plan day: 2 Comments: A: POD#2, doing well. Preeclampsia, resolving, with stable bp on meds. P: Home to f/u bp check in 1-2 days. Exam 2 Narrative: AVSS ABD soft, nontender, fundus firm. Incision c/d/i. EXT nontender
--- NOTE | 2025-01-28 09:00 | PC.NURSE ---
Consulted with mother concerning needs and she shared her ability to independently latch infant optimally without pain and she is also bottle feeding if baby does not latch. We discussed that if baby does not go to breast or if only taking a bottle then she would need to use her breast pump to protect her milk supply. [facility] RN offered to measure and set up pump but per mother she wishes to start pumping at home if she needs to. Mother is feeding appropriately for growth of infant and understands stimulating infant to eat if needed. Infant has had appropriate feedings in the last 24 hours meets the outcomes for weight, output, blood sugar and jaundice at this time. Reinforced understanding of milk production, transition of milk, signs of adequate intake, transition of stool, prevention/relief of engorgement, plugged ducts, mastitis, responsive watching for feeding cues, the different methods of stimulating infant to breastfeed 1-3 hours after the start of the last feeding, community resources, and when to call a provider using the resource of the feeding sheet along with the mom and baby guide. Mother voiced understanding of the information shared, is confident to continue effectively her infant at home, when to call for assistance, denies any additional assistance or education at this time. Primary RN in the room at this time.
[2025-01-28] MEDS: DOCUSATE SODIUM 100 MG CAPSULE PO (09:27)
[2025-01-28] MEDS: MULTIVIT/MIN/PREN/FOL AC/IRON TABLET 1 TAB PO (09:27)
[2025-01-28] MEDS: LORATADINE 10 MG TABLET PO (09:27)
[2025-01-28] MEDS: SIMETHICONE 80 MG TAB.CHEW PO (09:27)
--- NOTE | 2025-01-28 10:04 | PC.NURSE ---
Patient viewed the discharge video Mother & Baby Care, The First Two Weeks. Patient was given the opportunity and encouraged to ask questions. Patient verbalized understanding of information shared and has been given the mother/baby guide for home reference.
[2025-01-28 10:45] VITALS: BP 141/81
[2025-01-29 10:21] VITALS: BP 159/85; PULSE 78; RESP 18; TEMP 36.8; O2SAT 100
--- NOTE | 2025-02-02 00:27 | P.DS_ITS ---
DS: Admitting Diagnosis Discharge Date 01/28/25 Admitting Diagnosis IUP at 37 weeks Preeclampsia DS: Discharge Diagnosis Discharge Diagnosis (1) Pre-eclampsia: Qualifiers: Trimester: third trimester Qualified Code(s): O14.93 - Unspecified pre- eclampsia, third trimester Code(s): O14.90 - Unspecified pre-eclampsia, unspecified trimester Status: Acute (2) delivery delivered: Code(s): O82 - Encounter for delivery without indication Status: Acute OB - DS: Summary OB Procedures : PIH Mgmt OB Procedures Intrapartum: low cervical, transverse OB Procedures: : None Peripartum Data Procedures: Procedures Operation Date: 01/26/25 06:30 Actual Procedure Side Surgeon p Section Not Applicable Jarvis Liang MD Time Spent with Patient Time attestation: Total time spent providing and/or coordinating discharge services: DS: Data Data Completed and Pending Completed studies during hospitalization: Pending at discharge 01/26/25 09:55 Surgical [PTH] Routine Discharge Plan Discharge Attending physician on discharge: Jamie Queen Consulting providers: Hubert Ospina; Yadiel Chapman; Andrew Macario; Aniya Osuna Discharging Clinician: Jamie Queen Patient Disposition: Home Activity: may shower, may drive after 2 weeks and pelvic rest Diet: regular Wound Care Instructions: follow printed instructions Discharge Instructions: Education: Mom and Baby Guide Given to: Mother Follow-Up: Call your delivering provider's office for an appointment to be seen in: Call for appointment Mom and baby should come to the [facility] for the follow-up appointment. Appointment Date/Time: January 29, 2025 at 10:00 am What to expect at your follow-up visit: Blood Pressure Check Physical Assessment Call [phone] if you are unable to keep your appointment time. BREAST CARE: * Wear a snug supportive bra. * For engorgement discomfort: Breast Feeding: * Apply warm moist washcloths * Express milk as needed to relieve engorgement * Wear loose clothing Bottle Feeding: * May apply ice packs * For sore nipples: * Identify correct latch-on * Apply warm moist washcloths before and after nursing * Air dry nipples after nursing * May apply Lansinoh cream to nipples ABDOMINAL INCISION: * Allow incision to air dry * Do NOT use lotions or powders on your incision * When showering, allow soap and water to run over the incision, but do not wash incision PERINEAL CARE: * Until bleeding stops, use your reza bottle after urinating * Change your pad frequently throughout the day * You may take sitz baths several times a day (fill your bathtub with warm water and soak for 20 minutes.) Do NOT bathe in the water * No tub baths until seen by your physician - You may shower ACTIVITY: * Rest as much as possible. * Do not exercise or lift anything heavier than your baby (such as laundry or other children.) * Avoid stairs or driving as much as possible. * Do not put anything into the vagina. No douching, tampons, or sexual activity until seen by physician. NOTIFY PHYSICIAN IF YOU HAVE ANY QUESTIONS OR IF ANY OF THE FOLLOWING SYMPTOMS OCCUR: * If your incision becomes red, swollen, or more painful than what you have experienced in the hospital. * If your vaginal bleeding becomes foul smelling. * If your vaginal bleeding becomes more heavy than a period or if your bleeding changes from pink to bright red. However, you may pass an occasional walnut- sized clot once or twice for the first week . * If you experience a sharp, shooting pain in your calves. * If you discover a hard, reddened area on your breast or if you experience flu- like symptoms. DIET: * Eat regular, well-balanced meals. * Drink plenty of fluids daily. If , drink to thirst. Call or return if temperature above 100.4? F, increased abdominal pain, increased vaginal bleeding or any new problems. Patient Language: Amharic Stand Alone Forms: General Discharge Information Follow-up/Referrals: Jamie Queen MD [Physician] - Call for Appointment Discharge Medications: New ibuprofen 600 mg tablet 600 mg PO Q6H PRN (Reason: cramps) Qty: 30 0RF labetalol 200 mg tablet 200 mg PO Q12H Qty: 60 0RF oxycodone-acetaminophen [Endocet] 5-325 mg tablet 1 - 2 tablet PO Q6H PRN (Reason: pain) Qty: 30 0RF nifedipine [Procardia XL] 30 mg tablet extended release 24hr 30 mg PO DAILY Qty: 30 1RF ferrous sulfate 325 mg (65 mg iron) tablet 325 mg PO DAILY Qty: 30 0RF Continued DHA 200 mg capsule 200 mg PO DAILY docusate sodium [Colace] 100 mg capsule 100 mg PO DAILY cetirizine [Zyrtec] 10 mg tablet 10 mg PO DAILY nifedipine [Procardia XL] 30 mg tablet extended release 24hr 30 mg PO DAILY Qty: 10 0RF acetaminophen [Tylenol Extra Strength] 500 mg tablet 1,000 mg PO Q4-6H PRN (Reason: headache) Date of admission: 01/24/25 05:06 Primary Care Provider: PHYSICIAN,[employer] Admitting Provider: Jarvis Liang Attending physician on admission: Jamie Queen Condition: Stable
== END 2025-01-28 12:20 | disposition home or self-care (01) | DRG 788 ==
LOC: ANHOBOP 05:15 → ANHOBPP 05:15 → ANHLDR 06:35 → ANHOB2 01-26 11:46
PROVIDERS: Admitting Provider Obstetrics & Gynecology; Visit Provider Obstetrics & Gynecology
PROC: 10D00Z1 Extraction of Products of Conception, Low, Open Approach (ICD-10-PCS; CPT 59514; principal; 2025-01-26 06:30)
DX: O14.14 Severe pre-eclampsia complicating childbirth (principal); Z37.0 Single live birth; Z3A.37 37 weeks gestation of pregnancy; O13.4 Gestational [pregnancy-induced] hypertension without significant proteinuria, complicating childbirth; O62.1 Secondary uterine inertia
CPT/HCPCS: 36415; 80053; 81001; 82570; 84156; 84550; 85025; 86593; 86850; 86900; 86901; 88307; A9270; J0456; J1885; J2004; J2270; J2274; J2405; J2590; J2795; J3480; J7050; J7120